=== PATIENT | female | born 1965 | race Caucasian/White ===

== ENCOUNTER → 2017-06-15 | Outpatient (CLI) | payer MEDICAID ==
--- NOTE | 2017-06-15 11:54 | RADIOLOGY REPORT (SQ) ---
EXAM DESCRIPTION: HIP RIGHT AP/LATERAL COMPLETED DATE/TIME: 06/15/2017 11:42 am REASON FOR STUDY: PAIN IN RIGHT HIP M25.551 PAIN IN RIGHT HIP COMPARISON: None. NUMBER OF VIEWS: Two views. TECHNIQUE: AP pelvis and additional frog-leg view of the right hip. LIMITATIONS: None. FINDINGS: MINERALIZATION: Normal. RIGHT HIP: No fracture or dislocation. No worrisome bone lesions. High-grade joint space narrowing with bone on bone appearance right hip. No bulky right hip osteophytes. LEFT HIP: No fracture or dislocation. No worrisome bone lesions. No significant narrowing left hip. No acetabular osteophytes. PUBIS AND ISCHIUM: No fracture. PELVIS: No fracture. SACRUM: No fracture or dislocation. No worrisome bone lesions. LOWER LUMBAR SPINE: High-grade disc space loss of height at L4-5 and L5-S1 SOFT TISSUES: No findings. OTHER: No other significant finding. IMPRESSION: Joint space narrowing right hip. No acute fracture. TECHNICAL DOCUMENTATION: JOB ID: [id number] [employer]- All Rights Reserved Reading location - IP/workstation name: [email or web address]
== END ==
LOC: OD 11:22
PROVIDERS: ATTEND Physician Assistant
DX: M25.551 Pain in right hip (principal)

== ENCOUNTER → 2017-07-06 | Outpatient (CLI) | payer MEDICAID ==
--- NOTE | 2017-07-06 13:09 | RADIOLOGY REPORT (SQ) ---
EXAM DESCRIPTION: HIP LEFT AP/LATERAL COMPLETED DATE/TIME: 07/06/2017 11:52 am REASON FOR STUDY: PAIN IN LEFT HIP COMPARISON: 06/15/2017 right hip radiographs. NUMBER OF VIEWS: Two views, AP pelvis and frog lateral left hip. LIMITATIONS: None. FINDINGS: Moderate left hip joint space narrowing. No pelvic or hip fracture. Severe right hip DJD , as seen previously. Lower lumbar spondylosis. OTHER: No other significant finding. IMPRESSION: Left hip DJD, less pronounced compared to the right hip. No fracture or bone lesion. TECHNICAL DOCUMENTATION: JOB ID: [id number] Reading location - IP/workstation name: [email or web address]
== END ==
LOC: OD 11:39
PROVIDERS: ATTEND Family Medicine
DX: M25.552 Pain in left hip (principal)

== ENCOUNTER → 2017-08-29 | Outpatient (CLI) | payer MEDICAID ==
--- NOTE | 2017-08-30 08:10 | RADIOLOGY REPORT (SQ) ---
EXAM DESCRIPTION: MRI LUMBAR SPINE WITHOUT COMPLETED DATE/TIME: 08/29/2017 9:36 pm REASON FOR STUDY: LOW BACK PAIN RADIATING TO LEFT LEG M54.5 LOW BACK PAIN COMPARISON: Left hip films 07/06/2017 Right hip films 06/15/2017 TECHNIQUE: Sagittal and Axial imaging includes T1, T2, STIR and gradient echo sequences. Coronal T2/ HASTE imaging. LIMITATIONS: Motion artifact FINDINGS: VISUALIZED UPPER ABDOMEN: Limited evaluation. No acute or suspicious findings suggested. SEGMENTATION: No transitional anatomy. The lowest well-developed disc space is labeled L5-S1. ALIGNMENT: Minimal grade 1 anterolisthesis of L5 over S1 is present. VERTEBRAE: Intact. BONE MARROW: Mixed sclerotic and fatty degenerative vertebral body endplate change at T11-12 and L4-5 . DISC SIGNAL: Diffuse decreased T2 weighted intervertebral disc signal with disc space loss of height at T11-12 and L4-5. POSTERIOR ELEMENTS: Generally intact. No pars defect evident. HARDWARE: None in the spine. CORD AND CONUS: Normal in size and signal intensity. Conus at the L2 level. SOFT TISSUES: No aortic aneurysm seen. No bulky retroperitoneal adenopathy or mass. No paraspinal mas s or fluid. T11-12: Mild diffuse posterior disc bulge is present with bilateral facet and ligament hypertrophy. Borderline central canal narrowing. Mild bilateral foraminal narrowing without definite T11 exit ne rve root impingement. T12-L1: Mild bilateral facet hypertrophy. No central or foraminal encroachment. L1-L2: Mild bilateral facet hypertrophy. No central or foraminal encroachment. L2-L3: Mild bilateral facet hypertrophy. Minimal posterior disc bulging. No significant central or foraminal encroachment L3-L4: Broad diffuse posterior disc bulge and bulky bilateral facet and ligament hypertrophy cause mi ld to moderate central canal narrowing with partial effacement of the CSF around the lumbar nerve elza ts. There is mild bilateral inferior foraminal narrowing without exiting L3 nerve root impingement. L4-L5: High-grade disc space loss of height with sclerotic vertebral body endplate changes. Moderate bilateral facet and ligament hypertrophy. No central stenosis. There is moderate bilateral foramin al narrowing without definite exiting L4 nerve root impingement. L5-S1: Minimal grade 1 anterolisthesis of L5 over S1 is present. No central stenosis. Very bulky b ilateral facet hypertrophy is present with moderate right foraminal narrowing. There is a small syno vial cyst protruding off the anterior superior aspect of the right L5-S1 facet abutting the posterior aspect of the exiting right L5 nerve root on sagittal image 5. This synovial cyst measures about 5 mm size. On the left side, there is moderate foraminal narrowing without definite exiting L5 nerve r oot impingement. SACRUM: Visualized upper sacrum intact. OTHER: No other significant findings. IMPRESSION: Foraminal narrowing right greater than left at L5-S1. Mild to moderate central canal narrowing at L3-4 TECHNICAL DOCUMENTATION: JOB ID: [id number] [employer]- All Rights Reserved Reading location - IP/workstation name: [email or web address]
== END ==
LOC: RAD 20:49
PROVIDERS: ATTEND Family Medicine
DX: M54.5 Low back pain (principal); M48.07 Spinal stenosis, lumbosacral region
CPT/HCPCS: 72148

== ENCOUNTER → 2017-10-05 | Outpatient (CLI) | payer MEDICAID, OTHER ==
[2017-10-05 11:55] LABS: ABSOLUTE EOSINOPHILS # (AUTO) 0.2 10^3/uL (0.0-0.6); ABSOLUTE LYMPHOCYTES (AUTO) 1.4 10^3/uL (0.5-4.7); ABSOLUTE MONOCYTES (AUTO) 0.4 10^3/uL (0.1-1.4); ABSOLUTE NEUT (AUTO) 2.3 10^3/uL (1.7-8.2); BASOPHILS % (AUTO) 0.8 % (0-2); EOSINOPHILS % (AUTO) 4.2 % (0-6); HEMATOCRIT 34.5 % (36.0-47.0); HEMOGLOBIN 12.1 g/dL (12.0-15.5); LYMPHOCYTES % (AUTO) 32.3 % (13-45); MEAN CORPUSCULAR HEMOGLOBIN 30.7 pg (27.0-33.4); MEAN CORPUSCULAR HGB CONC 35.1 g/dL (32.0-36.0); MEAN CORPUSCULAR VOLUME 88 fl (80-97); MONOCYTES % (AUTO) 9.1 % (3-13); PLATELET COUNT 307 10^3/uL (150-450); RED BLOOD COUNT 3.93 10^6/uL (3.72-5.28); SEGMENTED NEUTROPHILS % (AUTO) 53.6 % (42-78); TOTAL CELLS COUNTED % (AUTO) 100 %; WHITE BLOOD COUNT 4.3 10^3/uL (4.0-10.5)
[2017-10-05 11:57] LABS: APPEARANCE,URINE SLIGHTLY-CLOUDY; BILIRUBIN,URINE NEGATIVE (NEGATIVE); COLOR,URINE YELLOW; GLUCOSE, URINE NEGATIVE (NEGATIVE); KETONES,URINE NEGATIVE (NEGATIVE); LEUKOCYTE ESTERASE,URINE SMALL (NEGATIVE); NITRITE,URINE NEGATIVE (NEGATIVE); PROTEIN,URINE NEGATIVE (NEGATIVE); URINE SPECIFIC GRAVITY 1.021; UROBILINOGEN,URINE NEGATIVE mg/dL (<2.0)
[2017-10-05 12:09] LABS: ANION GAP 14 (5-19); BLOOD UREA NITROGEN 13 mg/dL (7-20); CALCIUM 9.7 mg/dL (8.4-10.2); CARBON DIOXIDE 25 mmol/L (22-30); CHLORIDE 105 mmol/L (98-107); GLUCOSE 81 mg/dL (75-110); POTASSIUM 4.3 mmol/L (3.6-5.0); SODIUM 143.7 mmol/L (137-145)
--- NOTE | 2017-10-05 12:28 | RADIOLOGY REPORT (SQ) ---
EXAM DESCRIPTION: CHEST PA/LATERAL COMPLETED DATE/TIME: 10/05/2017 11:28 am REASON FOR STUDY: PRE-OP COMPARISON: None. EXAM PARAMETERS: NUMBER OF VIEWS: two views TECHNIQUE: Digital Frontal and Lateral radiographic views of the chest acquired. RADIATION DOSE: NA LIMITATIONS: none FINDINGS: LUNGS AND PLEURA: No opacities, masses or pneumothorax. No pleural effusion. MEDIASTINUM AND HILAR STRUCTURES: No masses or contour abnormalities. HEART AND VASCULAR STRUCTURES: Heart normal size. No evidence for failure. BONES: No acute findings. HARDWARE: None in the chest. OTHER: No other significant finding. IMPRESSION: NO SIGNIFICANT RADIOGRAPHIC FINDING IN THE CHEST. TECHNICAL DOCUMENTATION: JOB ID: [id number] [employer]- All Rights Reserved Reading location - IP/workstation name: [email or web address]
--- NOTE | 2017-10-05 22:02 | EKG REPORT ---
SEVERITY:- NORMAL ECG - SINUS RHYTHM : Confirmed by: Srinivasan Goncalves 05-Oct-2017 22:01:57
== END ==
LOC: OD 10:55
PROVIDERS: ATTEND Orthopaedic Surgery
DX: Z01.810 Encounter for preprocedural cardiovascular examination (principal); Z01.812 Encounter for preprocedural laboratory examination; Z01.818 Encounter for other preprocedural examination
CPT/HCPCS: 36415; 71046; 80048; 81001; 85025; 93005; 93010

== ENCOUNTER 2017-10-31 09:16 | Inpatient (IN) | payer MEDICAID, OTHER ==
[2017-10-31] MEDS: BUPIVACAINE INJ/PF LIPOSOME/PF 266 MG/20 ML SDV IJ PRN ×2 (08:26→12:45)
[2017-10-31] MEDS: THROMBIN (BOVINE) TOPICAL 20000 UNIT VIAL ONE ×2 (08:27→12:45)
[2017-10-31] MEDS: THROMBIN (BOVINE) 5000 UNIT EPITAXIS KIT ONE ×2 (08:28→12:45)
[~2017-10-31 09:16] MED LIST: ACETAMINOPHEN 1,000 MG/100 ML RTUPB IV ONE; BUPIVACAINE HCL/DEX-WATER/PF 15 MG/2 ML AMPULE ONE; BUPIVACAINE INJ/PF LIPOSOME/PF 266 MG/20 ML SDV ONE; CEFAZOLIN INJ 1 GM VIAL IV PRN; FENTANYL CITRATE INJ/PF 100 MCG/2 ML AMPUL ONE; IBUPROFEN 800 MG in DEXTROSE 5%-WATER 250 ML IV PRN; IBUPROFEN 800 MG/NS 250 ML IV PRN; LACTATED RINGERS 1000 ML IV PRN; LANSOPRAZOLE 15 MG TAB.RAP.DR PO PRN; LIDOCAINE 0.5% INJ-PF (5 MG/ML) 50 ML SDV SUBCUT PRN; LIDOCAINE 2% INJ-PF (20 MG/ML) 10 ML AMPUL ONE; MIDAZOLAM 2 MG/2 ML INJ ONE; OXYCODONE HCL SR 10 MG TABLET PO PRN; PROPOFOL INJ 200 MG/20 ML VIAL IV ONE; TRANEXAMIC ACID INJ/PF 1,000 MG/10 ML SDV IV ONE; VANCOMYCIN HCL 1,000 MG in DEXTROSE 5%-WATER 250 ML IV PRN
[2017-10-31] MEDS ORDERED: DEXAMETHASONE SOD PHOSPHATE INJ 4 MG/1 ML VIAL ONE (10:00)
[2017-10-31] MEDS ORDERED: PHENYLEPHRINE HCL INJ/PF 10 MG/1 ML SDV ONE (10:00)
[2017-10-31] MEDS ORDERED: ONDANSETRON HCL INJ/PF 4 MG/2 ML SDV ONE (10:00)
[2017-10-31] MEDS ORDERED: EPHEDRINE SULFATE INJ 50 MG/1 ML AMPULE ONE (13:37)
[2017-10-31] MEDS ORDERED: MEPERIDINE HCL/PF INJ 25 MG/1 ML DISP.SYRIN IV PRN (15:13)
[2017-10-31] MEDS ORDERED: MORPHINE SULFATE 10 MG/ML INJ IV PRN ×4 (15:13→15:21)
[2017-10-31] MEDS ORDERED: DIPHENHYDRAMINE HCL 50 MG/ML VIAL IV PRN ×2 (15:13→15:21)
[2017-10-31] MEDS ORDERED: ONDANSETRON HCL INJ/PF 4 MG/2 ML SDV IV PRN ×2 (15:13→15:21)
[2017-10-31] MEDS ORDERED: FENTANYL CITRATE INJ/PF 100 MCG/2 ML AMPUL IV PRN ×3 (15:13)
[2017-10-31] MEDS ORDERED: PROMETHAZINE HCL INJ 25 MG/1 ML VIAL IV PRN ×2 (15:13)
[2017-10-31] MEDS ORDERED: MORPHINE SULFATE 10 MG/ML INJ IM PRN (15:21)
[2017-10-31] MEDS ORDERED: OXYCODONE HCL IR 5 MG TABLET PO PRN (15:21)
[2017-10-31] MEDS ORDERED: RINGERS SOLUTION,LACTATED 1,000 ML IV PRN (15:21)
[2017-10-31] MEDS ORDERED: ACETAMINOPHEN 325 MG TABLET PO PRN (15:21)
[2017-10-31] MEDS ORDERED: MAG HYDROX/AL HYDROX/SIMETH SUSP 30 ML UDCUP PO PRN (15:21)
[2017-10-31] MEDS ORDERED: ZOLPIDEM TARTRATE 5 MG TABLET PO PRN (15:21)
[2017-10-31] MEDS ORDERED: ONDANSETRON 4 MG TAB.RAPDIS PO PRN (15:21)
--- NOTE | 2017-10-31 15:21 | Operative Report ---
Operative Report DATE OF SURGERY: 10/31/17 PREOPERATIVE DIAGNOSIS: Left hip arthritis OPERATION: Left hip arthroplasty SURGEON: PRAVEENA HUTTON ANESTHESIA: Spinal TISSUE REMOVED OR ALTERED: Bone to pathology ESTIMATED BLOOD LOSS: 150 PROCEDURE: Implants used: Femur: Weiser accolade 2 stem size 7 Acetabular shell: 54 mm hemispherical shell Liner: 36 mm flat cross-link polyethylene liner Head: 36 mm chrome cobalt head standard neck The patient is placed in a right lateral decubitus position on the operating table. The left lower extremity and hindquarter is prepped and draped in a sterile fashion. A curvilinear incision was made over the greater trochanter a posterior approach the hip was taken. The femoral head is dislocated and the femoral neck transected using an oscillating saw. Attention was next turned to the acetabulum. Soft tissues cleared off the acetabulum using electrocautery. The acetabulum was then prepared using a series of hemispherical reamers until a 54 millimeters reamer is seated. Subsequently a 54 millimeters Weiser titanium hemispherical shell is impacted into position and secured with one screw. A standard flat 36 millimeters cross- link liner is impacted into the shell. Attention was next turned to the femur. Access is gained to the femoral canal using a box osteotome to the piriformis fossa. The femur is then prepared using a series of broaches until a number 7 broach is seated. A trial reduction was now performed using a 36 millimeters head with standard neck. Preoperative leg length was recreated and is excellent anterior posterior stability. A decision was made to proceed with the above construct. All trial implants were removed. The wound is irrigated with pulsed lavage. A number 7 stem is impacted into the femoral canal. A trial reduction was again performed with a 36 mm head and a standard neck. Findings as previously. The hip was dislocated one last time and the final chrome-cobalt head is impacted onto the trunnion. The hip was reduced. Wound is copiously irrigated with pulsed lavage. Sent closed in layers using interrupted Vicryl followed by gail. A sterile dressing is applied and the patient's returned to recovery room in satisfactory patient.
--- NOTE | 2017-10-31 16:06 | RADIOLOGY REPORT (SQ) ---
EXAM DESCRIPTION: PELVIS AP COMPLETED DATE/TIME: 10/31/2017 3:58 pm REASON FOR STUDY: Post Op Long Cassette in PACU M16.12 UNILATERAL PRIMARY OSTEOARTHRITIS, LEFT HIP COMPARISON: None. NUMBER OF VIEWS: One view TECHNIQUE: Digital radiographic images of the pelvis post-procedure LIMITATIONS: None. FINDINGS: BONES: No worrisome or unexpected findings post-procedure. DEVICE: Left total hip arthroplasty. SOFT TISSUES: No worrisome findings. Expected postoperative soft tissue changes. IMPRESSION: SATISFACTORY POSTOPERATIVE PELVIS. TECHNICAL DOCUMENTATION: JOB ID: [id number] [employer]- All Rights Reserved Reading location - IP/workstation name: [email or web address]
[2017-10-31] MEDS ORDERED: TRANEXAMIC ACID INJ/PF 1,000 MG/10 ML SDV IV PRN (17:30)
[2017-10-31] MEDS: PREGABALIN 75 MG CAPSULE PO SCH (18:53)
[2017-10-31] MEDS: SENNOSIDES/DOCUSATE 8.6-50 MG 1 EACH TABLET PO SCH (18:53)
[2017-10-31] MEDS ORDERED: ACETAMINOPHEN 1,000 MG/100 ML RTUPB IV ONE (21:21)
[2017-10-31] MEDS: OXYCODONE HCL SR 10 MG TABLET PO SCH (22:38)
[2017-10-31] MEDS: IBUPROFEN 800 MG in DEXTROSE 5%-WATER 250 ML IV SCH (22:40)
[2017-11-01] MEDS ORDERED: VANCOMYCIN HCL 1,000 MG in DEXTROSE 5%-WATER 250 ML IV ONE (03:21)
[2017-11-01] MEDS: IBUPROFEN 800 MG in DEXTROSE 5%-WATER 250 ML IV SCH (05:24)
[2017-11-01] MEDS ORDERED: LANSOPRAZOLE 30 MG TAB.RAP.DR PO SCH (06:00)
[2017-11-01 06:52] LABS: HEMATOCRIT 25.9 % (36.0-47.0); MEAN CORPUSCULAR HEMOGLOBIN 31.3 pg (27.0-33.4); MEAN CORPUSCULAR HGB CONC 34.8 g/dL (32.0-36.0); MEAN CORPUSCULAR VOLUME 90 fl (80-97); PLATELET COUNT 263 10^3/uL (150-450); RED BLOOD COUNT 2.87 10^6/uL (3.72-5.28); RED CELL DISTRIBUTION WIDTH 12.8 % (11.5-14.0); WHITE BLOOD COUNT 10.9 10^3/uL (4.0-10.5)
--- NOTE | 2017-11-01 06:58 | PDOC DISCHARGE SUMMARY ---
General - Admit/Disc Date/PCP Admission Date/Primary Care Provider: 10/31/17 09:16 NOEL MAC MD Discharge Date: 11/01/17 - Additional Information Resuscitation Status: Full Code Discharge Diet: As Tolerated, Regular Discharge Activity: Balance Activity w/Rest, No Driving, No tub bath Home Medications: Cyclobenzaprine HCl [Flexeril 10 mg Tablet] 10 mg PO QHS 10/13/17 Diclofenac Sodium 50 mg PO BID 10/13/17 Aspirin [Ecotrin 81 mg EC Tablet] 81 mg PO DAILY tabec 11/01/17 Oxycodone HCl [Oxy-Ir 5 mg Tablet] 5 mg PO Q6HP PRN tablet 11/01/17 History of Present Illness History of Present Illness: NILDA GALDAMEZ is a 52 year old female Patient is a 52-year-old white female with progressive pain and functional disability secondary to hip arthritis. She is admitted for elective left hip arthroplasty. Hospital Course Hospital Course: Patient is admitted through the operating room where she undergoes uncomplicated left hip arthroplasty. She is seen by physical therapy on the surgical day. She ambulates 200 feet. She has minimal pain and discomfort. She subsequently for discharge home on a weightbearing as tolerated basis. Physical Exam Vital Signs: Temp Pulse Resp BP Pulse Ox 36.4 C 106 H 14 89/59 L 97 10/31/17 23:44 10/31/17 23:44 10/31/17 23:44 10/31/17 23:44 10/31/17 23:44 Intake & Output 10/30/17 10/31/17 11/01/17 06:59 06:59 06:59 Intake Total 6100 Output Total 2200 Balance 3900 Weight 104.1 kg General appearance: PRESENT: no acute distress Head exam: PRESENT: normocephalic Respiratory exam: PRESENT: unlabored Cardiovascular exam: PRESENT: RRR Pulses: PRESENT: +1 pedal pulses bilateral GI/Abdominal exam: PRESENT: soft Rectal exam: PRESENT: deferred Extremities exam: PRESENT: other - Left hip dressing clean dry and intact. Leg lengths are equal. Distal neurovascular examination is intact. Neurological exam: PRESENT: alert, awake, oriented to person, oriented to place , oriented to time, oriented to situation. ABSENT: motor sensory deficit Psychiatric exam: PRESENT: appropriate affect, normal mood. ABSENT: homicidal ideation, suicidal ideation Skin exam: PRESENT: dry, intact, warm. ABSENT: cyanosis, rash Results Laboratory Results: 10/31/17 09:41 Blood Type O POSITIVE Antibody Screen NEGATIVE Impressions: Pelvis X-Ray 10/31/17 15:22 IMPRESSION: SATISFACTORY POSTOPERATIVE PELVIS. Status: Imported from [employer] Qualifiers - * PATIENT BEING DISCHARGED WITH ANY OF THE FOLLOWING DIAGNOSIS: No VTE patient discharged on overlapping Therapy?: Yes Plan Discharge Plan: Patient be discharged home with home health nursing, home health physical therapy, will walker, bedside commode. Follow-up Dr. Castro [facility] for surgery in 2 weeks for staple removal. Time Spent: Less than 30 Minutes
[2017-11-01 07:06] LABS: ANION GAP 12 (5-19); BLOOD UREA NITROGEN 16 mg/dL (7-20); CALCIUM 9.4 mg/dL (8.4-10.2); CARBON DIOXIDE 21 mmol/L (22-30); CHLORIDE 106 mmol/L (98-107); GLUCOSE 144 mg/dL (75-110); POTASSIUM 4.5 mmol/L (3.6-5.0); SODIUM 138.7 mmol/L (137-145)
[2017-11-01] MEDS ORDERED: PRENATAL VITAMIN W DHA CAPSULE PO SCH (10:00)
[2017-11-01] MEDS ORDERED: ASPIRIN 81 MG TABLET, ENT COATED PO SCH (10:00)
[2017-11-01] MEDS: OXYCODONE HCL SR 10 MG TABLET PO SCH (10:47)
[2017-11-01] MEDS: PREGABALIN 75 MG CAPSULE PO SCH (10:48)
[2017-11-01] MEDS: SENNOSIDES/DOCUSATE 8.6-50 MG 1 EACH TABLET PO SCH (10:48)
[2017-11-01 11:38] VITALS: BP 120/87
--- NOTE | 2017-11-09 06:53 | PDOC DISCHARGE SUMMARY ---
General - Admit/Disc Date/PCP Admission Date/Primary Care Provider: 10/31/17 09:16 NOEL MAC MD Discharge Date: 11/03/17 - Additional Information Resuscitation Status: Full Code Discharge Diet: As Tolerated, Regular Discharge Activity: Balance Activity w/Rest, No Driving, No tub bath Home Medications: Cyclobenzaprine HCl [Flexeril 10 mg Tablet] 10 mg PO QHS 10/13/17 Diclofenac Sodium 50 mg PO BID 10/13/17 Aspirin [Ecotrin 81 mg EC Tablet] 81 mg PO DAILY tabec 11/01/17 Oxycodone HCl [Oxy-Ir 5 mg Tablet] 5 mg PO Q6HP PRN tablet 11/01/17 History of Present Illness History of Present Illness: Patient is a 52-year-old female with progressive hip pain and functional disability secondary osteoarthritis. Patient is admitted for an elective hip arthroplasty. Hospital Course Hospital Course: Patient is admitted through the operating room she got undergoes uncomplicated left hip arthroplasty. She is returned to floor in satisfactory condition. Seen by physical therapy for weightbearing as tolerated ambulation. Patient make slow steady progress with physical therapy and is subsequent for discharge home on postop day #2. Physical Exam Vital Signs: Temp Pulse Resp BP Pulse Ox 36.8 C 102 H 17 120/87 H 95 11/01/17 11:30 11/01/17 11:30 11/01/17 11:30 11/01/17 11:30 11/01/17 11:30 General appearance: PRESENT: no acute distress, mild distress Respiratory exam: PRESENT: unlabored Cardiovascular exam: PRESENT: RRR Extremities exam: PRESENT: other - Left hip dressing clean dry and intact Results Laboratory Results: 11/01/17 06:37 11/01/17 06:37 Impressions: Pelvis X-Ray 10/31/17 15:22 IMPRESSION: SATISFACTORY POSTOPERATIVE PELVIS. Status: Imported from [employer] Qual[employer] - * PATIENT BEING DISCHARGED WITH ANY OF THE FOLLOWING DIAGNOSIS: No VTE patient discharged on overlapping Therapy?: Yes Plan Discharge Plan: Patient to be discharged home with home health services and DME. Follow-up Dr. Castro and [facility] for surgery in 2 weeks for staple removal. Time Spent: Less than 30 Minutes
== END 2017-11-01 13:20 | disposition home or self-care (01) | DRG 470 ==
LOC: INOR 09:16 → 4S 16:59
PROVIDERS: ADMIT Orthopaedic Surgery; ATTEND Orthopaedic Surgery
PROC: 0SRB02A Replacement of Left Hip Joint with Metal on Polyethylene Synthetic Substitute, Uncemented, Open Approach (ICD-10-PCS; principal; 2017-10-31 11:15)
DX: M16.12 Unilateral primary osteoarthritis, left hip (principal); E66.3 Overweight; Z68.35 Body mass index [BMI] 35.0-35.9, adult
CPT/HCPCS: 01214; 36415; 72170; 80048; 81025; 85027; 86850; 86900; 86901; 88305; 88311; 88312; 94799; C1776; C9290; J0131; J0690; J1100; J1741; J2250; J2370; J2405; J2704; J3010; J3370; J3490; J7050; J7060

== ENCOUNTER 2017-12-01 17:34 | Observation (INO) | payer MEDICAID, OTHER ==
[2017-12-01] MEDS ORDERED: METOCLOPRAMIDE HCL ORAL SOLN 10 MG/10 ML UDCUP PO ONE (18:32)
[2017-12-01] MEDS ORDERED: LIDOCAINE 2% VISCOUS SOLN 20 ML UDCUP PO ONE (18:32)
[2017-12-01] MEDS ORDERED: MAG HYDROX/AL HYDROX/SIMETH SUSP 30 ML UDCUP PO ONE (18:32)
[2017-12-01] MEDS ORDERED: ONDANSETRON 4 MG TAB.RAPDIS PO ONE (18:32)
[2017-12-01] MEDS ORDERED: ASPIRIN 81 MG TABLET, CHEWABLE PO ONE (18:33)
[2017-12-01] MEDS ORDERED: PANTOPRAZOLE SODIUM 40 MG VIAL IV ONE (18:34)
--- NOTE | 2017-12-01 18:35 | ER Document Report ---
ED Medical Screen (RME) - General Chief Complaint: Chest Pain Stated Complaint: CHEST PAIN,ABDOMINAL PAIN Time Seen by Provider: 12/01/17 18:32 Notes: 52 years old female presents today with sudden onset of sharp epigastric pain radiating to the both sides and going to the back, CVA in nature sharp. Associated with nausea and vomited once. Denies any left arm numbness tingling sensation. Denies any precordial pain. She is on diclofenac sodium The last week she was having mild pain but today the pain was very sharp. On examination-seems to be in moderate to severe epigastric discomfort. TRAVEL OUTSIDE OF THE [place] IN LAST 30 DAYS: No - Related Data Allergies/Adverse Reactions: No Known Allergies Allergy (Verified 10/13/17 10:41) Past Medical History - Past Medical History Cardiac Medical History: Denies: Hx Hypercholesterolemia, Hx Hypertension Pulmonary Medical History: Denies: Hx Asthma, Hx Bronchitis, Hx COPD, Hx Sleep Apnea Neurological Medical History: Denies: Hx Seizures Endocrine Medical History: Denies: Hx Hyperthyroidism, Hx Hypothyroidism Renal/ Medical History: Denies: Hx Kidney Stones, Hx Peritoneal Dialysis Malignancy Medical History: Denies: Hx Leukemia GI Medical History: Denies: Hx Gastroesophageal Reflux Disease Musculoskeltal Medical History: Reports Hx Arthritis - hips, Denies Hx Fibromyalgia, Denies Hx Muscular Dystrophy Psychiatric Medical History: Denies: Hx Bipolar Disorder, Hx Depression, Hx Post Traumatic Stress Disorder Traumatic Medical History: Reports: Hx Fractures - left clavicle Infectious Medical History: Denies: Hx HIV Past Surgical History: Reports: Hx Section - x2. Denies: Hx Appendectomy, Hx Bowel Surgery, Hx Cholecystectomy, Hx Coronary Artery Bypass Graft, Hx Gastric Bypass Surgery, Hx Herniorrhaphy, Hx Hysterectomy, Hx Mastectomy, Hx Pacemaker, Hx Tonsillectomy, Hx Tubal Ligation - Immunizations History of Influenza Vaccine for 12/2016 - 05/2017 Season: Yes Influenza Administration Date for 12/2016 - 05/2017 Season: 12/05/16 Physical Exam - Vital signs Vitals: Temp Pulse Resp BP Pulse Ox 97.8 F 112 H 20 139/95 H 100 12/01/17 17:43 12/01/17 17:43 12/01/17 17:43 12/01/17 17:43 12/01/17 17:43 Course - Vital Signs Vital signs: Temp Pulse Resp BP Pulse Ox 97.8 F 112 H 20 139/95 H 100 12/01/17 17:43 12/01/17 17:43 12/01/17 17:43 12/01/17 17:43 12/01/17 17:43 Doctor's Discharge - Discharge Referrals: PRAVEENA HUTTON MD [Primary Care Provider] - Follow up as needed
--- NOTE | 2017-12-01 19:04 | RADIOLOGY REPORT (SQ) ---
EXAM DESCRIPTION: CHEST SINGLE VIEW COMPLETED DATE/TIME: 12/01/2017 6:45 pm REASON FOR STUDY: Chest pain COMPARISON: None. EXAM PARAMETERS: NUMBER OF VIEWS: One view. TECHNIQUE: Single frontal radiographic view of the chest acquired. RADIATION DOSE: NA LIMITATIONS: None. FINDINGS: LUNGS AND PLEURA: No opacities, masses or pneumothorax. No pleural effusion. MEDIASTINUM AND HILAR STRUCTURES: No masses. Contour normal. HEART AND VASCULAR STRUCTURES: Heart normal in size. Normal vasculature. BONES: No acute findings. HARDWARE: None in the chest. OTHER: No other significant finding. IMPRESSION: NO ACUTE RADIOGRAPHIC FINDING IN THE CHEST. TECHNICAL DOCUMENTATION: JOB ID: [id number] 2010 [employer]- All Rights Reserved Reading location - IP/workstation name: [email or web address]
[2017-12-01 19:31] LABS: ABSOLUTE BASOPHILS # (AUTO) 0.1 10^3/uL (0.0-0.2); ABSOLUTE EOSINOPHILS # (AUTO) 0.1 10^3/uL (0.0-0.6); ABSOLUTE MONOCYTES (AUTO) 0.9 10^3/uL (0.1-1.4); ABSOLUTE NEUT (AUTO) 10.5 10^3/uL (1.7-8.2); BASOPHILS % (AUTO) 0.6 % (0-2); HEMATOCRIT 36.4 % (36.0-47.0); HEMOGLOBIN 12.1 g/dL (12.0-15.5); LYMPHOCYTES % (AUTO) 7.7 % (13-45); MEAN CORPUSCULAR HEMOGLOBIN 29.6 pg (27.0-33.4); MEAN CORPUSCULAR HGB CONC 33.2 g/dL (32.0-36.0); MEAN CORPUSCULAR VOLUME 89 fl (80-97); MONOCYTES % (AUTO) 7.5 % (3-13); PLATELET COUNT 356 10^3/uL (150-450); RED BLOOD COUNT 4.09 10^6/uL (3.72-5.28); RED CELL DISTRIBUTION WIDTH 13.1 % (11.5-14.0); SEGMENTED NEUTROPHILS % (AUTO) 83.2 % (42-78); TOTAL CELLS COUNTED % (AUTO) 100 %; WHITE BLOOD COUNT 12.7 10^3/uL (4.0-10.5)
[2017-12-01 19:49] LABS: ALANINE AMINOTRANSFERASE 17 U/L (9-52); ALBUMIN 4.7 g/dL (3.5-5.0); ALKALINE PHOSPHATASE 157 U/L (38-126); ANION GAP 13 (5-19); ASPARTATE AMINO TRANSFERASE 28 U/L (14-36); BILIRUBIN,DIRECT 0.6 mg/dL (0.0-0.4); BILIRUBIN,TOTAL 1.6 mg/dL (0.2-1.3); BLOOD UREA NITROGEN 12 mg/dL (7-20); CALCIUM 10.5 mg/dL (8.4-10.2); CARBON DIOXIDE 24 mmol/L (22-30); CHLORIDE 103 mmol/L (98-107); CREATINE KINASE 45 U/L (30-135); GLUCOSE 122 mg/dL (75-110); POTASSIUM 4.5 mmol/L (3.6-5.0); SODIUM 139.5 mmol/L (137-145); TOTAL PROTEIN 7.9 g/dL (6.3-8.2)
[2017-12-01 20:01] LABS: CREATINE KINASE MB 0.31 ng/mL (<4.55)
[2017-12-01 20:04] LABS: TROPONIN I < 0.012 ng/mL
--- NOTE | 2017-12-01 22:18 | RADIOLOGY REPORT (SQ) ---
US ABDOMEN LIMITED HISTORY: Upper abdominal pain. COMPARISON: None. TECHNIQUE: Grayscale and color Doppler imaging of the right upper quadrant was performed. FINDINGS: The liver measures 13.6 cm. Normal liver echogenicity. Gallbladder is filled with debris. Gallbladder wall measures 7 mm Common bile duct measures 4 mm. No intrahepatic biliary ductal dilatation. Visualized pancreas is unremarkable. Right kidney measures 9.6 cm in length, without hydronephrosis. Visualized portions of the IVC and aorta are patent. IMPRESSION: Gallbladder is filled with debris with thickened gallbladder wall. However, no gallstones or pericholecystic fluid is seen. Findings are ambiguous for cholecystitis.
[2017-12-01] MEDS ORDERED: NORMAL SALINE 1000 ML 1,000 ML IV ONE (22:25)
--- NOTE | 2017-12-01 22:26 | ER Document Report ---
ED General - General Chief Complaint: Chest Pain Stated Complaint: CHEST PAIN,ABDOMINAL PAIN Time Seen by Provider: 12/01/17 18:32 Notes: Patient is a 52-year-old female without chronic medical problems, prior surgical history of a , who presents with an abrupt onset of upper abdominal pain that started approximately 1-2 hours prior to arrival. The patient describes it as a severe, stabbing pain to her epigastric and right upper quadrant that radiates around to her back. She states that the pain has been constant since onset and they have the waves of intensification. Nothing seems to improve or relieve her symptoms. She notes nausea without vomiting. Normal bowel movements. No history of similar symptoms in the past. She has not seen her doctor regarding parents. No fever or constitutional symptoms. TRAVEL OUTSIDE OF THE [place] IN LAST 30 DAYS: No - Related Data Allergies/Adverse Reactions: No Known Allergies Allergy (Verified 10/13/17 10:41) Past Medical History - General Information source: Patient - Social History Smoking Status: Never Smoker Chew tobacco use (# tins/day): No Frequency of alcohol use: Rare Drug Abuse: None Lives with: Spouse/Significant other Family History: Reviewed & Not Pertinent Patient has suicidal ideation: No Patient has homicidal ideation: No - Past Medical History Cardiac Medical History: Denies: Hx Hypercholesterolemia, Hx Hypertension Pulmonary Medical History: Denies: Hx Asthma, Hx Bronchitis, Hx COPD, Hx Sleep Apnea Neurological Medical History: Denies: Hx Seizures Endocrine Medical History: Denies: Hx Hyperthyroidism, Hx Hypothyroidism Renal/ Medical History: Denies: Hx Kidney Stones, Hx Peritoneal Dialysis Malignancy Medical History: Denies: Hx Leukemia GI Medical History: Denies: Hx Gastroesophageal Reflux Disease Musculoskeletal Medical History: Reports Hx Arthritis - hips, Denies Hx Fibromyalgia, Denies Hx Muscular Dystrophy Psychiatric Medical History: Denies: Hx Bipolar Disorder, Hx Depression, Hx Post Traumatic Stress Disorder Traumatic Medical History: Reports: Hx Fractures - left clavicle Infectious Medical History: Denies: Hx HIV Past Surgical History: Reports: Hx Section - x2. Denies: Hx Appendectomy, Hx Bowel Surgery, Hx Cholecystectomy, Hx Coronary Artery Bypass Graft, Hx Gastric Bypass Surgery, Hx Herniorrhaphy, Hx Hysterectomy, Hx Mastectomy, Hx Pacemaker, Hx Tonsillectomy, Hx Tubal Ligation Review of Systems - Review of Systems Notes: Constitutional: Negative for fever. HENT: Negative for sore throat. Eyes: Negative for visual changes. Cardiovascular: Negative for chest pain. Respiratory: Negative for shortness of breath. Gastrointestinal: Positive for abdominal pain and nausea Genitourinary: Negative for dysuria. Musculoskeletal: Negative for back pain. Skin: Negative for rash. Neurological: Negative for headaches, weakness or numbness. 10 point ROS negative except as marked above and in HPI. Physical Exam - Vital signs Vitals: Temp Pulse Resp BP Pulse Ox 97.8 F 112 H 20 139/95 H 100 12/01/17 17:43 12/01/17 17:43 12/01/17 17:43 12/01/17 17:43 12/01/17 17:43 Interpretation: Tachycardic Notes: PHYSICAL EXAMINATION: GENERAL: Appears moderately uncomfortable but in no acute distress HEAD: Atraumatic, normocephalic. EYES: Pupils equal round and reactive to light, extraocular movements intact, sclera anicteric, conjunctiva are normal. ENT: nares patent, oropharynx clear without exudates. Moist mucous membranes. NECK: Normal range of motion, supple without lymphadenopathy LUNGS: Breath sounds clear to auscultation bilaterally and equal. No wheezes rales or rhonchi. HEART: Regular rate and rhythm without murmurs ABDOMEN: Soft, moderate tenderness to the epigastric and right upper quadrant no other localized areas of tenderness, normoactive bowel sounds. No guarding, no rebound. No masses appreciated. EXTREMITIES: Normal range of motion, no pitting or edema. No cyanosis. NEUROLOGICAL: No focal neurological deficits. Moves all extremities spontaneously and on command. PSYCH: Normal mood, normal affect. SKIN: Warm, Dry, normal turgor, no rashes or lesions noted. Course - Re-evaluation Re-evalutation: 12/01/17 22:25 Patient presents with signs and symptoms most worrisome for acute cholecystitis. She has focal epigastric and right upper quadrant abdominal pain with associated nausea and vomiting. Labs show mild leukocytosis, mild bilirubin elevation. Right upper quadrant ultrasound does show a thickened gallbladder wall, debris inside the gallbladder. Despite analgesic control on repeat abdominal examination the patient continues to have persistent tenderness in the right upper quadrant epigastrium. I have discussed with the surgeon extension service supervisor who will evaluate the patient. 12/01/17 23:04 or has requested a CT abdomen pelvis to further clarify given patient's evolving abdominal exam with increased lower abdominal pain at this time. 12/02/17 02:09 CT does confirm acute cholecystitis. I have spoken again to the surgeon who has accepted the patient for operative management. - Vital Signs Vital signs: Temp Pulse Resp BP Pulse Ox 97.8 F 112 H 18 128/85 H 98 12/01/17 17:43 12/01/17 17:43 12/02/17 00:01 12/02/17 00:00 12/02/17 00:01 - Laboratory Result Diagrams: 12/01/17 19:08 12/01/17 19:08 Laboratory results interpreted by me: 12/01/17 12/01/17 19:08 19:08 WBC 12.7 H Seg Neutrophils % 83.2 H Lymphocytes % 7.7 L Absolute Neutrophils 10.5 H Glucose 122 H Calcium 10.5 H Total Bilirubin 1.6 H Direct Bilirubin 0.6 H Alkaline Phosphatase 157 H - Diagnostic Test Radiology reviewed: Reports reviewed Discharge - Discharge Clinical Impression: Acute cholecystitis, Nausea, Upper abdominal pain Condition: Fair Disposition: ADMITTED INPATIENT Admitting Provider: Hospitalist Unit Admitted: Surgical Floor Referrals: PRAVEENA HUTTON MD [ACTIVE STAFF] - Follow up as needed
[2017-12-01] MEDS: MORPHINE SULFATE 10 MG/ML INJ IV PRN (23:19)
--- NOTE | 2017-12-02 01:56 | RADIOLOGY REPORT (SQ) ---
EXAM DESCRIPTION: CT ABDOMEN PELVIS WITH IV CONTRAST COMPLETED DATE/TME: 12/02/2017 00:00 CLINICAL HISTORY: 52 years, Female, EPIGASTRIC, RUQ RLQ PAIN. COMPARISON: None. TECHNIQUE: Axial CT images of the abdomen and pelvis were obtained after administration of IV and oral contrast. [facility] [id number] Images stored on PACS. All CT scanners at this facility use dose modulation, iterative reconstruction, and/or weight based dosing when appropriate to reduce radiation dose to as low as reasonably achievable (ALARA). [facility]: Dose Right [facility]: CareDose [facility]: Dose Right [facility]: Teradose 4D [facility]: Smart Technologies LIMITATIONS: None. FINDINGS: The lung bases are clear. The liver contains a 1.3 cm cyst within the right hepatic lobe. The gallbladder is distended with indistinct senior and pericholecystic fluid the pancreas, spleen, adrenal glands, and kidneys appear normal. No evidence of hydronephrosis. There is no intraperitoneal free air or fluid. There is no lymphadenopathy. The stomach, small bowel, appendix, and colon are unremarkable. The abdominal aorta is normal in caliber. The uterus, adnexa, and urinary bladder are unremarkable. There are changes of a left hip arthroplasty. There are no lytic or blastic bone lesions. IMPRESSION: Distention of the gallbladder with indistinct senior and pericholecystic fluid, likely representing acute cholecystitis. Normal appendix. TECHNICAL DOCUMENTATION: Quality ID # [id number]: Final reports with documentation of one or more dose reduction techniques (e.g., Automated exposure control, adjustment of the mA and/or kV according to patient size, use of iterative reconstruction technique) 2010 [employer]- All Rights Reserved
[2017-12-02] MEDS ORDERED: ONDANSETRON 4 MG TAB.RAPDIS PO PRN (02:17)
[2017-12-02] MEDS ORDERED: HYDROMORPHONE HCL INJ/PF 2 MG/ML AMPULE IV PRN (02:17)
--- NOTE | 2017-12-02 02:17 | PDOC H&P ---
History of Present Illness Admission Date/PCP: NOEL MAC MD Patient complains of: Abdominal pain History of Present Illness: NILDA GALDAMEZ is a 52 year old female usual state of good health until 2 days ago when she began to experience indigestion that eventually went away. The following day she had nausea and vomiting and dyspepsia. She denies any diarrhea. She denies any fever. Today she began to have epigastric abdominal pain radiating to bilateral flanks along with nausea. The pain persisted and she came into the emergency department. She denies any prior history of this sort of abdominal pain. She denies any alcohol abuse and she denies any NSAID abuse. She does take some medications status post her left hip surgery a month ago. She is apparently rehabbing well. There is no history of jaundice. Past Medical History Cardiac Medical History: Denies: Hyperlipidema, Hypertension Pulmonary Medical History: Denies: Asthma, Bronchitis, Chronic Obstructive Pulmonary Disease (COPD), Sleep Apnea Neurological Medical History: Denies: Seizures Endocrine Medical History: Denies: Hyperthyroidism, Hypothyroidism Malignancy Medical History: Denies: Leukemia GI Medical History: Denies: Gastroesophageal Reflux Disease Musculoskeltal Medical History: Reports: Arthritis - hips Denies: Fibromyalgia Psychiatric Medical History: Denies: Bipolar Disorder, Depression, Post Traumatic Stress Disorder Hematology: Reports: Anemia - hx no blood transfusions Denies: Hemophilia, Sickle Cell Disease Infectious Medical History: Denies: HIV Past Surgical History Past Surgical History: Reports: Section - x2, Orthopedic Surgery - Left total hip replacement about a month ago Denies: Amputation, Appendectomy, Cholecystectomy, Coronary Artery Bypass Graft, Gastric Bypass Surgery, Herniorrhaphy, Hysterectomy, Mastectomy, Pacemaker, Tonsillectomy, Tubal Ligation Social History Lives with: Spouse/Significant other Smoking Status: Never Smoker Frequency of Alcohol Use: Occasional Hx Recreational Drug Use: No Hx Prescription Drug Abuse: No Family History Family History: Reviewed & Not Pertinent Parental Family History Reviewed: No Children Family History Reviewed: No Sibling(s) Family History Reviewed.: No Medication/Allergy Home Medications: Cyclobenzaprine HCl [Flexeril 10 mg Tablet] 10 mg PO QHS 10/13/17 Diclofenac Sodium 50 mg PO BID 10/13/17 Aspirin [Ecotrin 81 mg EC Tablet] 81 mg PO DAILY tabec 11/01/17 Oxycodone HCl [Oxy-Ir 5 mg Tablet] 5 mg PO Q6HP PRN tablet 11/01/17 Allergies/Adverse Reactions: No Known Allergies Allergy (Verified 10/13/17 10:41) Physical Exam Vital Signs: Temp Pulse Resp BP Pulse Ox 97.8 F 112 H 18 128/85 H 98 12/01/17 17:43 12/01/17 17:43 12/02/17 00:01 12/02/17 00:00 12/02/17 00:01 Intake & Output 11/30/17 12/01/17 12/02/17 06:59 06:59 06:59 Weight 103.419 kg General appearance: PRESENT: no acute distress, cooperative Eye exam: PRESENT: conjunctiva pink Neck exam: PRESENT: other - Supple with no tenderness and no masses Respiratory exam: PRESENT: clear to auscultation simi Cardiovascular exam: PRESENT: tachycardia - 110 GI/Abdominal exam: PRESENT: other - Soft, nondistended, right mid to lower abdominal tenderness to palpation without peritoneal signs. No Schmidt sign. Neurological exam: PRESENT: alert, awake Psychiatric exam: PRESENT: appropriate affect Skin exam: PRESENT: warm Results Laboratory Results: 12/01/17 19:08 12/01/17 19:08 12/01/17 12/01/17 12/01/17 19:08 19:08 19:08 WBC 12.7 H RBC 4.09 Hgb 12.1 Hct 36.4 MCV 89 MCH 29.6 MCHC 33.2 RDW 13.1 Plt Count 356 Seg Neutrophils % 83.2 H Lymphocytes % 7.7 L Monocytes % 7.5 Eosinophils % 1.0 Basophils % 0.6 Absolute Neutrophils 10.5 H Absolute Lymphocytes 1.0 Absolute Monocytes 0.9 Absolute Eosinophils 0.1 Absolute Basophils 0.1 Sodium 139.5 Potassium 4.5 Chloride 103 Carbon Dioxide 24 Anion Gap 13 BUN 12 Creatinine 0.74 Est GFR ( Amer) > 60 Est GFR (Non-Af Amer) > 60 Glucose 122 H Calcium 10.5 H Total Bilirubin 1.6 H AST 28 ALT 17 Alkaline Phosphatase 157 H Total Protein 7.9 Albumin 4.7 Lipase 105.0 12/01/17 12/01/17 19:08 19:08 Creatine Kinase 45 CK-MB (CK-2) 0.31 Troponin I < 0.012 Impressions: Chest X-Ray 12/01/17 18:33 IMPRESSION: NO ACUTE RADIOGRAPHIC FINDING IN THE CHEST. Abdomen Ultrasound 12/01/17 20:44 IMPRESSION: Gallbladder is filled with debris with thickened gallbladder wall. However, no gallstones or pericholecystic fluid is seen. Findings are ambiguous for cholecystitis. Assessment & Plan - Diagnosis (1) Abnormal gallbladder ultrasound Is this a current diagnosis for this admission?: Yes Plan: Gallbladder wall thickening with debris in the gallbladder but no clear-cut gallstones seen. Sonographic Schmidt sign is negative and her abdominal exam demonstrates tenderness that seems lower on the right side than I would expect for gallbladder related tenderness. Therefore CT scan was obtained. CT scan demonstrates a normal appendix and CT scan evidence of cholecystitis with gallbladder wall thickening and pericholecystic fluid. Will admit the patient placed on IV fluids and bowel rest and antibiotics. Will discuss with the oncoming surgeon in the morning about laparoscopic cholecystectomy for likely acute cholecystitis.
[2017-12-02] MEDS ORDERED: AMPICILLIN SOD/SULBACTAM 3 GM VIAL ONE (02:35)
[2017-12-02] MEDS: AMPICILLIN SODIUM/SULBACTAM NA 3 GM in NORMAL SALINE 100 ML IV SCH ×4 (03:51→20:25)
[2017-12-02] MEDS: MORPHINE SULFATE 10 MG/ML INJ IV PRN (03:52)
[2017-12-02] MEDS ORDERED: FENTANYL CITRATE INJ/PF 100 MCG/2 ML AMPUL ONE (08:45)
[2017-12-02] MEDS ORDERED: MIDAZOLAM 2 MG/2 ML INJ ONE (08:46)
[2017-12-02] MEDS ORDERED: PROPOFOL INJ 200 MG/20 ML VIAL IV ONE (08:46)
[2017-12-02] MEDS ORDERED: ACETAMINOPHEN 1,000 MG/100 ML RTUPB IV ONE (10:34)
[2017-12-02] MEDS ORDERED: BUPIVACAINE HCL 0.5 % INJ/PF 30 ML SDV ONE (10:34)
[2017-12-02] MEDS ORDERED: HYDROMORPHONE HCL INJ/PF 2 MG/ML AMPULE ONE (10:36)
[2017-12-02] MEDS ORDERED: DIPHENHYDRAMINE HCL 50 MG/ML VIAL IV PRN (11:18)
[2017-12-02] MEDS ORDERED: MEPERIDINE HCL/PF INJ 25 MG/1 ML DISP.SYRIN IV PRN (11:18)
[2017-12-02] MEDS ORDERED: PROMETHAZINE HCL INJ 25 MG/1 ML VIAL IV PRN ×2 (11:18)
[2017-12-02] MEDS ORDERED: MORPHINE SULFATE 10 MG/ML INJ IV PRN (11:18)
[2017-12-02] MEDS ORDERED: FENTANYL CITRATE INJ/PF 100 MCG/2 ML AMPUL IV PRN ×3 (11:18)
[2017-12-02] MEDS ORDERED: ACETAMINOPHEN WITH CODEINE #3 TABLET PO PRN (12:27)
[2017-12-02] MEDS ORDERED: ONDANSETRON HCL INJ/PF 4 MG/2 ML SDV IV PRN (12:27)
--- NOTE | 2017-12-02 12:39 | Operative Report ---
Operative Report DATE OF SURGERY: 12/02/17 PREOPERATIVE DIAGNOSIS: Acute cholecystitis with choledocholithiasis POSTOPERATIVE DIAGNOSIS: Same OPERATION: 1. Laparoscopic cholecystectomy. 2. Drainage of subhepatic space SURGEON: MISTY BANDA ANESTHESIA: GA TISSUE REMOVED OR ALTERED: 1 gallbladder with contents COMPLICATIONS: None ESTIMATED BLOOD LOSS: 25 cc INTRAOPERATIVE FINDINGS: See below PROCEDURE: After obtaining informed consent, the patient was taken to the operating room. General Anesthesia was induced; the arms were extended, and the abdomen was exposed, and prepped and draped in a sterile fashion. Instrumentation was set up for laparoscopic cholecystectomy. Surgical plan and surgical timeout were conducted. A vertical incision was made above the umbilicus, and a verres needle was inserted uneventfully into the peritoneal cavity. Pneumoperitoneum was established. The verres needle was removed and a 5 mm trocar was inserted and a 5 mm flexible laparoscope was inserted. Visualization of the peritoneal cavity confirmed safe uneventful entry. Under direct visualization 3 additional 5 mm ports were established, one in the subxiphoid position and second in the subcostal position. Findings are significant for an acutely inflamed gallbladder with the gastro colonic omentum stuck to the fundus of the gallbladder. The gallbladder was markedly inflamed and edematous and enlarged. We used a combination of gentle retraction, suction, and hand-held LigaSure device to take all the omentum off of the inferior surface of the gallbladder. We now aspirated the gallbladder foul-smelling bile approximately 60 cc of bile. Now we were able to bluntly dissected out the neck of the gallbladder, junction with the cystic duct. Visualization of the hepatobiliary anatomy revealed no anatomic variations. A grasper was placed on the fundus of the gallbladder and the gallbladder is elevated over the right surface of the liver; a second grasper was used to grasp the infundibulum of the gallbladder. The neck of the gallbladder and junction with the cystic duct was dissected out. The Cystic artery was in its usual location medial and cephalad to the cystic duct. Photographs were taken. The cystic artery was of normal caliber. The cystic artery was surrounded with a right angle clamp, clipped twice proximally and divided with laparoscopic scissors. We now opened the triangle of Calot by dividing the peritoneal reflection on both the medial and lateral sides of the cystic duct infundibular junction. The critical view was obtained. The grafts were taken. We now milked the cystic duct of any possible stones, clipped the cystic duct approximately 2 times once distally and divided with scissors. The gallbladder was now removed from the undersurface of the liver using hook cautery dissection, as well as the LigaSure device. Again it was acutely inflamed very edematous. Was leakage of bile into the peritoneal cavity but this was aspirated. Graspers were repositioned and the gallbladder was lysed in an Endobag and then removed uneventfully from the abdominal cavity through the super umbilical port site incision. The specimen was examined, then passed off to pathology for permanent analysis. We returned to the peritoneal cavity check for bleeding, and evidence of bile leak, and there was none. We Confirmed satisfactory placement of clips on cystic duct and cystic artery were secured . At this point we felt the operation was complete. A 15 Turkmen Sixto drain was placed in 1 of the ports and placed in the subhepatic space. It was secured to skin with 2-0 silk suture. The supraumbilical port site was closed with a 0 Vicryl suture x2. The subcutaneous tissue was then anesthetized with quarter percent Marcaine Sponge and needle counts are correct. All ports removed under direct visualization pneumoperitoneum evacuated, and 5 mm port wounds closed with 3-0 Vicryl suture, benzoin and Steri-Strips. The patient was extubated, and taken to the recovery room in stable condition.
[2017-12-02] MEDS ORDERED: ONDANSETRON HCL INJ/PF 4 MG/2 ML SDV ONE (13:24)
[2017-12-02] MEDS ORDERED: DEXAMETHASONE SOD PHOSPHATE INJ 4 MG/1 ML VIAL ONE (13:24)
[2017-12-02] MEDS: KETOROLAC TROMETHAMINE INJ/PF 30 MG/1 ML SDV IV PRN ×2 (16:28→23:11)
--- NOTE | 2017-12-02 21:05 | EKG REPORT ---
SEVERITY:- OTHERWISE NORMAL ECG - SINUS TACHYCARDIA : Confirmed by: Sherin Izquierdo MD 02-Dec-2017 21:04:42
[2017-12-02] MEDS: NORMAL SALINE 1000 ML 1,000 ML IV PRN (22:58)
[2017-12-03] MEDS: AMPICILLIN SODIUM/SULBACTAM NA 3 GM in NORMAL SALINE 100 ML IV SCH ×2 (02:25→08:24)
[2017-12-03] MEDS: NORMAL SALINE 1000 ML 1,000 ML IV PRN (08:24)
[2017-12-03] MEDS: KETOROLAC TROMETHAMINE INJ/PF 30 MG/1 ML SDV IV PRN (08:31)
[2017-12-03 11:21] VITALS: BP 98/52
--- NOTE | 2017-12-04 02:26 | DISCHARGE SUMMARY E ---
Discharge Summary NAME: NILDA GALDAMEZ : 1965 AGE: 52Y ADMITTED: 12/02/2017 DISCHARGED: 12/03/2017 PROCEDURE DONE: Laparoscopic cholecystectomy. SURGEON: Timmy Callahan MD DATE: 12/02/2017 HOSPITAL COURSE: This is a 52-year-old female with abdominal pain. She was noted to have acute cholecystitis with cholelithiasis on ultrasound and CT scan of the abdomen. She then underwent laparoscopic cholecystectomy by Dr. Callahan on 12/02/2017. Postoperatively, the patient did very well and discharged improved on 12/03/2017 with the above final diagnosis. The patient was advised not to do any heavy lifting for the next 2 weeks. The patient is to be followed up in the surgical clinic in 2 weeks. The patient is advised to take Tylenol or Aleve as needed for pain. DICTATING PHYSICIAN: JANICE ROSSI M.D. [id number] PHY#: [id number] ID: [id number] JOB#: [id number] ACCT: [id number] cc:ALEX BURGESS M.D. JANICE ROSSI M.D. >
== END 2017-12-03 12:31 | disposition home or self-care (01) ==
LOC: ER 17:34 → INTOOBSV 12-02 02:23 → EH 12-02 02:23 → 4S 12-02 03:30
PROVIDERS: ADMIT Internal Medicine; ATTEND Internal Medicine
PROC: 0FT44ZZ Resection of Gallbladder, Percutaneous Endoscopic Approach (ICD-10-PCS; principal; 2017-12-02 10:30)
DX: K80.00 Calculus of gallbladder with acute cholecystitis without obstruction (principal); R00.0 Tachycardia, unspecified; Z96.642 Presence of left artificial hip joint; Z79.82 Long term (current) use of aspirin; Z79.891 Long term (current) use of opiate analgesic; Z79.1 Long term (current) use of non-steroidal anti-inflammatories (NSAID)
CPT/HCPCS: 93005; 99285; 96374; 36415; 87040; 82553; 82550; 83690; 85025; 80053; 84484; 88304 ×2; 71045; 76705; 74177; 93010; 47562; G0378 ×3; J2250; J3490 ×4; J1100; S0119; J0295 ×2; J1885 ×2; J2270 ×2; J1170; S0164; J2405; J2704; J0131; 790; J3010

== ENCOUNTER → 2017-12-27 | Outpatient (CLI) | payer MEDICAID ==
--- NOTE | 2017-12-27 15:51 | RADIOLOGY REPORT (SQ) ---
EXAM DESCRIPTION: CHEST PA/LATERAL COMPLETED DATE/TIME: 12/27/2017 3:41 pm REASON FOR STUDY: PRE-OP COMPARISON: Chest films 10/05/2017, 12/01/2017 EXAM PARAMETERS: NUMBER OF VIEWS: two views TECHNIQUE: Digital Frontal and Lateral radiographic views of the chest acquired. RADIATION DOSE: NA LIMITATIONS: none FINDINGS: LUNGS AND PLEURA: No opacities, masses or pneumothorax. No pleural effusion. MEDIASTINUM AND HILAR STRUCTURES: No masses or contour abnormalities. HEART AND VASCULAR STRUCTURES: Heart normal size. No evidence for failure. BONES: No acute findings. Benign bone island left posterior 6th rib. HARDWARE: Clips right upper quadrant post cholecystectomy OTHER: No other significant finding. IMPRESSION: NO SIGNIFICANT RADIOGRAPHIC FINDING IN THE CHEST. TECHNICAL DOCUMENTATION: JOB ID: [id number] [employer]- All Rights Reserved Reading location - IP/workstation name: [facility]
[2017-12-27 16:26] LABS: ABSOLUTE LYMPHOCYTES (AUTO) 0.7 10^3/uL (0.5-4.7); ABSOLUTE MONOCYTES (AUTO) 0.1 10^3/uL (0.1-1.4); ABSOLUTE NEUT (AUTO) 7.5 10^3/uL (1.7-8.2); BASOPHILS % (AUTO) 0.3 % (0-2); EOSINOPHILS % (AUTO) 0.2 % (0-6); HEMATOCRIT 35.4 % (36.0-47.0); HEMOGLOBIN 12.1 g/dL (12.0-15.5); MEAN CORPUSCULAR HEMOGLOBIN 29.8 pg (27.0-33.4); MEAN CORPUSCULAR HGB CONC 34.1 g/dL (32.0-36.0); MEAN CORPUSCULAR VOLUME 87 fl (80-97); MONOCYTES % (AUTO) 1.2 % (3-13); PLATELET COUNT 328 10^3/uL (150-450); RED BLOOD COUNT 4.05 10^6/uL (3.72-5.28); RED CELL DISTRIBUTION WIDTH 13.1 % (11.5-14.0); SEGMENTED NEUTROPHILS % (AUTO) 90.3 % (42-78); TOTAL CELLS COUNTED % (AUTO) 100 %; WHITE BLOOD COUNT 8.3 10^3/uL (4.0-10.5)
[2017-12-27 16:31] LABS: APPEARANCE,URINE CLEAR; BILIRUBIN,URINE NEGATIVE (NEGATIVE); COLOR,URINE YELLOW; GLUCOSE, URINE NEGATIVE (NEGATIVE); KETONES,URINE NEGATIVE (NEGATIVE); LEUKOCYTE ESTERASE,URINE NEGATIVE (NEGATIVE); NITRITE,URINE NEGATIVE (NEGATIVE); PROTEIN,URINE NEGATIVE (NEGATIVE); URINE SPECIFIC GRAVITY 1.016
[2017-12-27 16:45] LABS: ANION GAP 9 (5-19); BLOOD UREA NITROGEN 18 mg/dL (7-20); CALCIUM 9.6 mg/dL (8.4-10.2); CARBON DIOXIDE 28 mmol/L (22-30); CHLORIDE 103 mmol/L (98-107); GLUCOSE 105 mg/dL (75-110); POTASSIUM 4.6 mmol/L (3.6-5.0); SODIUM 139.5 mmol/L (137-145)
--- NOTE | 2017-12-27 21:07 | EKG REPORT ---
SEVERITY:- NORMAL ECG - SINUS RHYTHM : Confirmed by: Srinivasan Goncalves 27-Dec-2017 21:06:25
== END ==
LOC: OD 14:59
PROVIDERS: ATTEND Orthopaedic Surgery
DX: Z01.810 Encounter for preprocedural cardiovascular examination (principal); Z01.812 Encounter for preprocedural laboratory examination; Z01.818 Encounter for other preprocedural examination
CPT/HCPCS: 36415; 71046; 80048; 81001; 85025; 93005; 93010

== ENCOUNTER 2018-01-16 09:05 | Inpatient (IN) | payer MEDICAID, OTHER ==
[~2018-01-16 09:05] MED LIST changes: -ACETAMINOPHEN 1,000 MG/100 ML RTUPB IV ONE; +BUPIVACAINE HCL 0.25% /EPINEPHRINE INJ/PF 30 ML SDV ONE; -BUPIVACAINE HCL/DEX-WATER/PF 15 MG/2 ML AMPULE ONE; +BUPIVACAINE INJ/PF LIPOSOME/PF 266 MG/20 ML SDV INJ PRN; -BUPIVACAINE INJ/PF LIPOSOME/PF 266 MG/20 ML SDV ONE; +CEFAZOLIN 1 GM/D5W RTU 1 GM/50 ML RTUPB IV ONE; -FENTANYL CITRATE INJ/PF 100 MCG/2 ML AMPUL ONE; -IBUPROFEN 800 MG in DEXTROSE 5%-WATER 250 ML IV PRN; +IBUPROFEN 800 MG in NORMAL SALINE 250 ML IV PRN; -IBUPROFEN 800 MG/NS 250 ML IV PRN; -LIDOCAINE 2% INJ-PF (20 MG/ML) 10 ML AMPUL ONE; -MIDAZOLAM 2 MG/2 ML INJ ONE; -PROPOFOL INJ 200 MG/20 ML VIAL IV ONE; +THROMBIN (BOVINE) TOPICAL 5000 UNIT VIAL ONE; -TRANEXAMIC ACID INJ/PF 1,000 MG/10 ML SDV IV ONE
[2018-01-16] MEDS ORDERED: LANSOPRAZOLE 15 MG TAB.RAP.DR ONE (10:07)
[2018-01-16] MEDS ORDERED: OXYCODONE HCL SR 10 MG TABLET PO ONE (10:07)
[2018-01-16] MEDS ORDERED: MIDAZOLAM 2 MG/2 ML INJ ONE (10:26)
[2018-01-16] MEDS ORDERED: PROPOFOL INJ 200 MG/20 ML VIAL IV ONE (10:26)
[2018-01-16] MEDS ORDERED: FENTANYL CITRATE INJ/PF 100 MCG/2 ML AMPUL ONE (10:26)
[2018-01-16] MEDS ORDERED: OXYCODONE-ACETAMINOPHEN 5-325 MG TABLET PO PRN ×2 (11:44)
[2018-01-16] MEDS ORDERED: PROMETHAZINE HCL INJ 25 MG/1 ML VIAL IV PRN ×2 (11:44)
[2018-01-16] MEDS ORDERED: FENTANYL CITRATE INJ/PF 100 MCG/2 ML AMPUL IV PRN ×3 (11:44)
[2018-01-16] MEDS ORDERED: DIPHENHYDRAMINE HCL 50 MG/ML VIAL IV PRN ×2 (11:44→12:19)
[2018-01-16] MEDS ORDERED: MEPERIDINE HCL/PF INJ 25 MG/1 ML DISP.SYRIN IV PRN (11:44)
--- NOTE | 2018-01-16 12:18 | Operative Report ---
Operative Report DATE OF SURGERY: 01/16/18 PREOPERATIVE DIAGNOSIS: Right hip avascular necrosis OPERATION: Right hip arthroplasty SURGEON: PRAVEENA HUTTON ANESTHESIA: Spinal TISSUE REMOVED OR ALTERED: Femoral head to pathology ESTIMATED BLOOD LOSS: 150 PROCEDURE: Implants used: Femur: Neri Accolade 2 stem size 7 Acetabular shell: 54 mm hemispherical shell Liner: 36 mm flat cross-link polyethylene liner Head: A 36 mm chrome cobalt head -5 neck The patient is placed in a left lateral decubitus position on the operating table. The right lower extremity and hindquarter is prepped and draped in a sterile fashion. A curvilinear incision was made over the greater trochanter a posterior approach the hip was taken. The femoral head is dislocated and the femoral neck transected using an oscillating saw. Attention was next turned to the acetabulum. Soft tissues cleared off the acetabulum using electrocautery. The acetabulum was then prepared using a series of hemispherical reamers until a 54 millimeters reamer is seated. Subsequently a 54 millimeters Henry titanium hemispherical shell is impacted into position and secured with one screw. A standard flat 36 millimeters cross- link liner is impacted into the shell. Attention was next turned to the femur. Access is gained to the femoral canal using a box osteotome to the piriformis fossa. The femur is then prepared using a series of broaches until a number 7 broach is seated. A trial reduction was now performed using a 36 millimeters head with -5 neck. Preoperative leg length was recreated and is excellent anterior posterior stability. A decision was made to proceed with the above construct. All trial implants were removed. The wound is irrigated with pulsed lavage. A number 7 stem is impacted into the femoral canal. A trial reduction was again performed with a 36 mm head and a -5 neck. Findings as previously. The hip was dislocated one last time and the final chrome-cobalt head is impacted onto the trunnion. The hip was reduced. Wound is copiously irrigated with pulsed lavage. Sent closed in layers using interrupted Vicryl followed by gail. A sterile dressing is applied and the patient's returned to recovery room in satisfactory patient.
[2018-01-16] MEDS ORDERED: ACETAMINOPHEN 325 MG TABLET PO PRN (12:19)
[2018-01-16] MEDS ORDERED: MORPHINE SULFATE 10 MG/ML INJ IV PRN ×3 (12:19)
[2018-01-16] MEDS ORDERED: ZOLPIDEM TARTRATE 5 MG TABLET PO PRN (12:19)
[2018-01-16] MEDS ORDERED: ONDANSETRON 4 MG TAB.RAPDIS PO PRN (12:19)
[2018-01-16] MEDS ORDERED: MAG HYDROX/AL HYDROX/SIMETH SUSP 30 ML UDCUP PO PRN (12:19)
[2018-01-16] MEDS ORDERED: ONDANSETRON HCL INJ/PF 4 MG/2 ML SDV ONE (12:59)
--- NOTE | 2018-01-16 13:15 | RADIOLOGY REPORT (SQ) ---
EXAM DESCRIPTION: PELVIS AP COMPLETED DATE/TIME: 01/16/2018 1:04 pm REASON FOR STUDY: Post Op Long Cassette in PACU M16.11 UNILATERAL PRIMARY OSTEOARTHRITIS, RIGHT HI P COMPARISON: Hip films 07/06/2017, 10/31/2017 NUMBER OF VIEWS: One view TECHNIQUE: Digital radiographic images of the pelvis post-procedure LIMITATIONS: None. FINDINGS: BONES: No worrisome or unexpected findings post-procedure. DEVICE: NEW RIGHT Total hip replacement. Components of the device in appropriate location. SOFT TISSUES: No worrisome findings. Expected postoperative soft tissue changes. Old left hip replac ement in the field of view IMPRESSION: SATISFACTORY POSTOPERATIVE PELVIS. TECHNICAL DOCUMENTATION: JOB ID: [id number] [employer]- All Rights Reserved Reading location - IP/workstation name: [facility] BEDS AT THE [facility]
[2018-01-16] MEDS ORDERED: TRANEXAMIC ACID INJ/PF 1,000 MG/10 ML SDV IV ONE ×2 (14:30→15:15)
[2018-01-16] MEDS: RINGERS SOLUTION,LACTATED 1,000 ML IV PRN (14:33)
[2018-01-16] MEDS: MORPHINE SULFATE 10 MG/ML INJ IV PRN (16:37)
[2018-01-16] MEDS: PREGABALIN 75 MG CAPSULE PO SCH (17:37)
[2018-01-16] MEDS: SENNOSIDES/DOCUSATE 8.6-50 MG 1 EACH TABLET PO SCH (17:37)
[2018-01-16] MEDS: IBUPROFEN 800 MG in DEXTROSE 5%-WATER 250 ML IV SCH (17:37)
[2018-01-16] MEDS: OXYCODONE HCL IR 5 MG TABLET PO PRN (17:46)
[2018-01-16] MEDS ORDERED: ACETAMINOPHEN 1,000 MG/100 ML RTUPB IV ONE ×2 (18:19→19:00)
[2018-01-16] MEDS: ONDANSETRON HCL INJ/PF 4 MG/2 ML SDV IV PRN (19:05)
[2018-01-16] MEDS ORDERED: OXYCODONE HCL SR 10 MG TABLET PO SCH (22:00)
[2018-01-17] MEDS ORDERED: VANCOMYCIN HCL 1,000 MG in DEXTROSE 5%-WATER 250 ML IV ONE (00:19)
[2018-01-17] MEDS: RINGERS SOLUTION,LACTATED 1,000 ML IV PRN ×2 (00:44→21:40)
[2018-01-17] MEDS: ONDANSETRON HCL INJ/PF 4 MG/2 ML SDV IV PRN ×2 (02:58→17:59)
[2018-01-17] MEDS: MORPHINE SULFATE 10 MG/ML INJ IV PRN (02:59)
[2018-01-17] MEDS: OXYCODONE HCL IR 5 MG TABLET PO PRN (06:20)
[2018-01-17] MEDS: LANSOPRAZOLE 30 MG TAB.RAP.DR PO SCH (06:20)
[2018-01-17] MEDS: IBUPROFEN 800 MG in DEXTROSE 5%-WATER 250 ML IV SCH ×3 (06:23→18:00)
[2018-01-17 06:39] LABS: HEMATOCRIT 27.8 % (36.0-47.0); HEMOGLOBIN 9.6 g/dL (12.0-15.5); MEAN CORPUSCULAR HEMOGLOBIN 30.1 pg (27.0-33.4); MEAN CORPUSCULAR HGB CONC 34.4 g/dL (32.0-36.0); MEAN CORPUSCULAR VOLUME 87 fl (80-97); PLATELET COUNT 249 10^3/uL (150-450); RED BLOOD COUNT 3.18 10^6/uL (3.72-5.28); RED CELL DISTRIBUTION WIDTH 13.8 % (11.5-14.0); WHITE BLOOD COUNT 6.7 10^3/uL (4.0-10.5)
[2018-01-17 07:16] LABS: ANION GAP 11 (5-19); BLOOD UREA NITROGEN 17 mg/dL (7-20); CALCIUM 9.1 mg/dL (8.4-10.2); CARBON DIOXIDE 27 mmol/L (22-30); CHLORIDE 102 mmol/L (98-107); GLUCOSE 110 mg/dL (75-110); POTASSIUM 4.7 mmol/L (3.6-5.0); SODIUM 139.6 mmol/L (137-145)
--- NOTE | 2018-01-17 07:43 | PDOC PROGRESS REPORT ---
Subjective Progress Note for:: 01/17/18 Reason For Visit: RIGHT HIP AVASCULAR NECROSIS 52-year-old white female postop day 1 status post right hip arthroplasty referred for for avascular necrosis. Patient with complaints of pain overnight. Physical Exam Vital Signs: Temp Pulse Resp BP Pulse Ox 36.7 C 81 16 110/58 L 98 01/17/18 00:00 01/17/18 00:00 01/17/18 00:00 01/17/18 00:00 01/17/18 00:00 Intake & Output 01/16/18 01/17/18 01/18/18 06:59 06:59 06:59 Intake Total 5772 Output Total 1750 Balance 4022 Weight 99.5 kg General appearance: PRESENT: mild distress, obese, well-nourished Head exam: PRESENT: normocephalic Respiratory exam: PRESENT: unlabored Cardiovascular exam: PRESENT: RRR Pulses: PRESENT: +1 pedal pulses bilateral Vascular exam: PRESENT: normal capillary refill GI/Abdominal exam: PRESENT: soft Rectal exam: PRESENT: deferred Extremities exam: PRESENT: other - Right hip dressing change. Wound is well approximated. There is considerable surrounding ecchymosis. There is no active drainage. Neurological exam: PRESENT: alert, awake, oriented to person, oriented to place , oriented to time, oriented to situation. ABSENT: motor sensory deficit Psychiatric exam: PRESENT: appropriate affect, normal mood. ABSENT: homicidal ideation, suicidal ideation Skin exam: PRESENT: dry, intact, warm. ABSENT: cyanosis, rash Results Laboratory Results: 01/17/18 06:28 01/17/18 06:28 01/16/18 01/17/18 01/17/18 11:11 06:28 06:28 WBC 6.7 RBC 3.18 L Hgb 9.6 L Hct 27.8 L MCV 87 MCH 30.1 MCHC 34.4 RDW 13.8 Plt Count 249 Sodium 139.6 Potassium 4.7 Chloride 102 Carbon Dioxide 27 Anion Gap 11 BUN 17 Creatinine 0.85 Est GFR ( Amer) > 60 Est GFR (Non-Af Amer) > 60 Glucose 110 Calcium 9.1 Blood Type O POSITIVE Antibody Screen NEGATIVE Impressions: Pelvis X-Ray 01/16/18 12:20 IMPRESSION: SATISFACTORY POSTOPERATIVE PELVIS. Status: Imported from PACS Assessment & Plan - Diagnosis (1) Avascular necrosis of bone of right hip Is this a current diagnosis for this admission?: Yes Plan: Patient to be mobilized with physical therapy and weightbearing as tolerated basis. Will increase analgesia to make patient more comfortable. - Time Time Spent with patient: 15-24 minutes Anticipated discharge: Home with Homehealth Within: within 24 hours
[2018-01-17] MEDS: PREGABALIN 75 MG CAPSULE PO SCH ×2 (10:19→18:00)
[2018-01-17] MEDS: OXYCODONE HCL SR 40 MG TABLET PO SCH ×2 (10:19→21:39)
[2018-01-17] MEDS: SENNOSIDES/DOCUSATE 8.6-50 MG 1 EACH TABLET PO SCH ×2 (10:22→18:00)
[2018-01-17] MEDS: PRENATAL VITAMIN W DHA CAPSULE PO SCH (10:22)
[2018-01-17] MEDS: ASPIRIN 81 MG TABLET, ENT COATED PO SCH (10:22)
[2018-01-18] MEDS: IBUPROFEN 800 MG in DEXTROSE 5%-WATER 250 ML IV SCH ×2 (02:52→09:34)
[2018-01-18] MEDS: OXYCODONE HCL IR 5 MG TABLET PO PRN (04:55)
[2018-01-18 06:44] LABS: HEMOGLOBIN 8.8 g/dL (12.0-15.5); MEAN CORPUSCULAR HEMOGLOBIN 30.5 pg (27.0-33.4); MEAN CORPUSCULAR HGB CONC 35.2 g/dL (32.0-36.0); MEAN CORPUSCULAR VOLUME 87 fl (80-97); PLATELET COUNT 254 10^3/uL (150-450); RED BLOOD COUNT 2.88 10^6/uL (3.72-5.28); WHITE BLOOD COUNT 5.6 10^3/uL (4.0-10.5)
[2018-01-18] MEDS: LANSOPRAZOLE 30 MG TAB.RAP.DR PO SCH (06:54)
--- NOTE | 2018-01-18 07:02 | PDOC DISCHARGE SUMMARY ---
General - Admit/Disc Date/PCP Admission Date/Primary Care Provider: 01/16/18 09:05 NOEL MAC MD Discharge Date: 01/18/18 - Discharge Diagnosis (1) Avascular necrosis of bone of right hip Is this a current diagnosis for this admission?: Yes - Additional Information Resuscitation Status: Full Code Home Medications: Diclofenac Sodium [Voltaren 50 mg Tablet.dr] 50 mg PO Q12 12/02/17 History of Present Illness History of Present Illness: NILDA GALDAMEZ is a 52 year old female Patient is a 52-year-old white female with progressive right hip pain and functional disability so she with avascular necrosis. Patient is admitted for elective right hip arthroplasty. Hospital Course Hospital Course: Patient is admitted through the operating where she undergoes uncomplicated right hip arthroplasty. She ambulates with physical therapy on the day of surgery but has uncontrolled pain as well as nausea and vomiting which led to a second hospital night. This has resolved and she is now ready for discharge home. Physical Exam Vital Signs: Temp Pulse Resp BP Pulse Ox 36.8 C 85 13 90/51 L 91 L 01/17/18 19:44 01/17/18 19:44 01/17/18 16:00 01/17/18 19:44 01/17/18 19:44 Intake & Output 01/17/18 01/18/18 01/19/18 06:59 06:59 06:59 Intake Total 5772 3512 Output Total 1750 Balance 4022 3512 Weight 99.5 kg General appearance: PRESENT: no acute distress, mild distress, obese, well- nourished Head exam: PRESENT: normocephalic Respiratory exam: PRESENT: unlabored Cardiovascular exam: PRESENT: RRR GI/Abdominal exam: PRESENT: soft Rectal exam: PRESENT: deferred Musculoskeletal exam: PRESENT: other - Right hip wound surrounded by ecchymosis. Dressing was again changed today. There is no active drainage. Leg lengths are equal. Distal neurovascular examination is intact. Neurological exam: PRESENT: alert, awake, oriented to person, oriented to place , oriented to time, oriented to situation. ABSENT: motor sensory deficit Psychiatric exam: PRESENT: appropriate affect, normal mood. ABSENT: homicidal ideation, suicidal ideation Skin exam: PRESENT: dry, intact, warm. ABSENT: cyanosis, rash Results Laboratory Results: 01/18/18 06:26 01/17/18 06:28 01/17/18 01/18/18 06:28 06:26 WBC 5.6 RBC 2.88 L Hgb 8.8 L Hct 25.0 L MCV 87 MCH 30.5 MCHC 35.2 RDW 14.0 Plt Count 254 Sodium 139.6 Potassium 4.7 Chloride 102 Carbon Dioxide 27 Anion Gap 11 BUN 17 Creatinine 0.85 Est GFR ( Amer) > 60 Est GFR (Non-Af Amer) > 60 Glucose 110 Calcium 9.1 Impressions: Pelvis X-Ray 01/16/18 12:20 IMPRESSION: SATISFACTORY POSTOPERATIVE PELVIS. Status: Imported from PACS Qualifiers - * PATIENT BEING DISCHARGED WITH ANY OF THE FOLLOWING DIAGNOSIS: No VTE patient discharged on overlapping Therapy?: Yes Plan Discharge Plan: Patient be discharged home with home health services and DME. Follow-up with Dr. Gloria Payton [place] for surgery in 2 weeks for staple removal. Time Spent: Less than 30 Minutes
[2018-01-18] MEDS: PRENATAL VITAMIN W DHA CAPSULE PO SCH (09:34)
[2018-01-18] MEDS: PREGABALIN 75 MG CAPSULE PO SCH (09:34)
[2018-01-18] MEDS: OXYCODONE HCL SR 40 MG TABLET PO SCH (09:34)
[2018-01-18] MEDS: ASPIRIN 81 MG TABLET, ENT COATED PO SCH (09:34)
[2018-01-18] MEDS: SENNOSIDES/DOCUSATE 8.6-50 MG 1 EACH TABLET PO SCH (09:34)
[2018-01-18 09:36] VITALS: BP 109/63
== END 2018-01-18 13:35 | disposition home health service (06) | DRG 470 ==
LOC: INOR 09:05 → 4S 14:10
PROVIDERS: ADMIT Orthopaedic Surgery; ATTEND Orthopaedic Surgery
PROC: 0SR902A Replacement of Right Hip Joint with Metal on Polyethylene Synthetic Substitute, Uncemented, Open Approach (ICD-10-PCS; principal; 2018-01-16 11:15)
PROC: 3E02340 Introduction of Influenza Vaccine into Muscle, Percutaneous Approach (ICD-10-PCS; 2018-01-18)
DX: M87.051 Idiopathic aseptic necrosis of right femur (principal); E66.3 Overweight; Z96.652 Presence of left artificial knee joint; Z23 Encounter for immunization; Z79.899 Other long term (current) drug therapy
CPT/HCPCS: 01214; 36415; 72170; 80048; 81025; 85027; 86850; 86900; 86901; 88304; 88311; 90471; 90686; 94799; C1776; G0008; J0131; J0690; J1741; J2250; J2270; J2405; J2704; J3010; J3370; J3490; J7050; J7060; J7120

== ENCOUNTER 2019-05-07 08:53 | Day surgery (SDC) | payer MEDICAID, OTHER ==
[~2019-05-07 08:53] MED LIST changes: -BUPIVACAINE HCL 0.25% /EPINEPHRINE INJ/PF 30 ML SDV ONE; -BUPIVACAINE INJ/PF LIPOSOME/PF 266 MG/20 ML SDV INJ PRN; -CEFAZOLIN 1 GM/D5W RTU 1 GM/50 ML RTUPB IV ONE; -CEFAZOLIN INJ 1 GM VIAL IV PRN; -IBUPROFEN 800 MG in NORMAL SALINE 250 ML IV PRN; -LACTATED RINGERS 1000 ML IV PRN; -LANSOPRAZOLE 15 MG TAB.RAP.DR PO PRN; -LIDOCAINE 0.5% INJ-PF (5 MG/ML) 50 ML SDV SUBCUT PRN; -OXYCODONE HCL SR 10 MG TABLET PO PRN; +PROPOFOL INJ 200 MG/20 ML VIAL IV ONE; -THROMBIN (BOVINE) TOPICAL 5000 UNIT VIAL ONE; -VANCOMYCIN HCL 1,000 MG in DEXTROSE 5%-WATER 250 ML IV PRN
[2019-05-07] MEDS ORDERED: PROPOFOL INJ 200 MG/20 ML VIAL IV ONE (10:44)
[2019-05-07 11:04] VITALS: BP 121/76
--- NOTE | 2019-05-07 11:59 | Operative Report ---
Operative Report DATE OF SURGERY: 05/07/19 Operative Report: The risk, benefits and alternatives of the procedure including the risk of bleeding, perforation requiring surgery have been explained to the patient in detail and informed consent has been obtained. Patient is placed in a left, lateral decubital position. Timeout was called. Propofol medication is administered. Rectal examination is done which did not reveal any masses, tears or fissures. An Olympus videoscope was inserted into the patient's rectum. Scope was then advanced all the way to the cecum. Cecum was identified by the usual anatomical landmarks. Prep was good. All of the segments are visualized. Retroflexion maneuvers performed. PREOPERATIVE DIAGNOSIS: Colorectal cancer screening POSTOPERATIVE DIAGNOSIS: Hepatic flexure polyp was removed via snare polypectomy. Diverticulosis without any evidence of diverticulitis. Internal hemorrhoids. Right-sided colon inflammation status post biopsy OPERATION: Colonoscopy with snare polypectomy. Colonoscopy with biopsy SURGEON: PALAK MABRY ANESTHESIA: LMAC TISSUE REMOVED OR ALTERED: As noted above. COMPLICATIONS: None. ESTIMATED BLOOD LOSS: None. INTRAOPERATIVE FINDINGS: As noted above. PROCEDURE: Patient tolerated the procedure well. No immediate postprocedure complications are noted. Patient is discharged in good condition. Discharge date 05/07/2019. Discharge diet: Regular. Discharge activity: Regular. 2 to 3-week follow-up to discuss findings. Patient is instructed to call the office or proceed to the emergency room should there be any further problems or questions. Wait on the pathology. 3 to 5-year surveillance colonoscopy.
== END 2019-05-07 10:57 | disposition home or self-care (01) ==
LOC: END 08:53
PROVIDERS: ATTEND Internal Medicine Gastroenterology
DX: D12.6 Benign neoplasm of colon, unspecified (principal); K57.30 Diverticulosis of large intestine without perforation or abscess without bleeding; K64.8 Other hemorrhoids; K52.9 Noninfective gastroenteritis and colitis, unspecified; E66.01 Morbid (severe) obesity due to excess calories; Z68.41 Body mass index [BMI] 40.0-44.9, adult
CPT/HCPCS: 45380; 45385; 88305 ×2; J2704